=== PATIENT | male | born 1995 | race Caucasian/White ===

== ENCOUNTER 2024-04-04 03:09 | Emergency (ER) | payer OTHER, SELFPAY ==
[2024-04-04 03:15] VITALS: BP 147/93; PULSE 84; RESP 18; TEMP 36.5; O2SAT 94; BMI 33.4
--- NOTE | 2024-04-04 03:18 | XRR_ITS ---
PROCEDURE INFORMATION: Exam: XR Right Knee Exam date and time: 04/04/2024 3:27 AM Age: 29 years old Clinical indication: Swelling, leg or foot; Additional info: Pain swelling no trauma TECHNIQUE: Imaging protocol: Radiologic exam of the right knee. Views: 3 views. COMPARISON: No relevant prior studies available. FINDINGS: Bones/joints: Perhaps minimal articular effusion. Soft tissues: Thickening of the prepatellar anterior soft tissues. XR/XR knee RT 3V* [id number] IMPRESSION: 1. Thickening of the anterior pre-patellar soft tissues, nonspecific, can be seen in infection, trauma, bursitis. Correlate clinically. 2. Miniscule articular effusion.
[2024-04-04 03:20] VITALS: BP 147/93; PULSE 82; RESP 16; O2SAT 96
--- NOTE | 2024-04-04 03:21 | ED_ITS ---
HPI - Extremity Problem 2 General: Chief complaint: Extremity Problem,Nontraumatic Stated complaint: right knee arthoritis infection per doc Time Seen by Provider: 04/04/24 03:12 History of Present Illness: Patient presents to the ER with complaints of right knee pain and swelling. This began about a week ago. Patient does not remember any known trauma however he is up on his knees a lot for work. There is obvious swelling no erythema or warmth patient was seen by the [place] doctor and given some steroids of unknown kind patient said it has not helped and only became worse. Patient said that the doctor did some testing and said there was not uric acid ruled out gout otherwise he is not for sure what he tested for. Patient is never had this knee full to flareup like this, patient denies any fever chills nausea vomiting. Patient is able to stand and walk on his knee but it hurts. Patient has decent flexion and extension of his knee. Review of Systems 2 General: Reports: 10 or more systems reviewed and unremarkable except in HPI and below Physical Exam 2 Const: COMMON NORMALS: no acute distress, average body habitus, patient oriented x3, no limitations, healthy appearing, alert and well nourished HENMT: COMMON NORMALS: normocephalic, atraumatic, hearing grossly normal bilaterally, external ears normal, Normal external nose present and moist oral mucous membranes HEAD & SCALP: normocephalic and atraumatic NOSE: Normal external nose present EXTERNAL EAR: Yes external ears normal Neck/C-Spine: COMMON NORMALS: no JVD Resp: COMMON NORMALS: normal respiratory effort, No retractions, No use of accessory muscles and clear to auscultation bilaterally AUSCULTATION: clear to auscultation bilaterally Cardio: COMMON NORMALS: no JVD, regular rate, regular rhythm, S1 normal heart sound present, S2 normal heart sound present, No gallops present (Cardio), No clicks present (Cardio), No murmurs present (Cardio) and No rub (Cardio) R ATE: regular rate RHYTHM: regular rhythm HEART SOUNDS: S1 normal heart sound present and S2 normal heart sound present GI: COMMON NORMALS: Normal to inspection, nondistended, normoactive bowel sounds present, Soft to palpation, non-tender, No hepatosplenomegaly present and no masses PALPATION: Yes Soft to palpation and Yes No hepatosplenomegaly present Extremity: NARRATIVE EXTREMITY EXAM: Right knee swollen over prepatellar region and infrapatellar region. There is no tenderness to palpation over medial lateral collateral ligaments or posterior fossa. Tenderness to palpation over anterior patellar region is the most painful followed by the infrapatellar joint space region. There is no erythema or additional warmth to the knee No open sores or discharge noted. Neuro: COMMON NORMALS: patient oriented x3 SENSORIUM/ORIENTATION: Yes alert Course 2 Vital Signs: Vital signs: Vital Signs Temperature 97.7 F 04/04/24 03:15 Pulse Rate 82 04/04/24 03:20 Respiratory Rate 16 04/04/24 03:20 Blood Pressure 147/93 04/04/24 03:20 Pulse Oximetry 96 04/04/24 03:20 Oxygen Delivery Me thod Room Air 04/04/24 03:20 MDM - Extremity (Nontraumatic) Medical Decision Making X-ray preliminary read myself is negative for bony issues, lab work revealed a negative CBC negative CMP, uric acid was elevated at 7.4 CRP was mildly elevated at 5.9 procalcitonin was negative. These results was discussed with the patient as it may very well be gout with a positive uric acid however it is not red and irritated and he just finished a course of steroids, patient does not want to be put on another course of steroids or get a steroid shot he just wants pain medicine. We will prescribe him some meloxicam and have him follow-up with his primary care physician in the next 7 days for further evaluation and treatment. Medical Records I reviewed the patient's medical records. Lab Data I reviewed the patient's lab results. 04/04/24 03:48 04/04/24 03:48 Laboratory Results WBC 7.02 10^3/uL (3.29-11.43) 04/04/24 03:48 RBC 4.74 10^6/uL (3.85-5.65) 04/04/24 03:48 Hgb 15.00 g/dL (11.27-16.99) 04/04/24 03:48 Hct 44.3 % (37-53) 04/04/24 03:48 MCV 93.5 fl (82-101) 04/04/24 03:48 MCH 31.6 pg (27-33) 04/04/24 03:48 MCHC 33.9 g/dL (30-55) 04/04/24 03:48 RDW 11.9 % (12.1-15.1) L 04/04/24 03:48 Plt Count 238 10^3/cmm (157-399) 04/04/24 03:48 MPV 9.6 fL (7.4-10.4) 04/04/24 03:48 Neut % (Auto) 52.5 % 04/04/24 03:48 Lymph % (Auto) 36.5 % 04/04/24 03:48 Woodruff % (Auto) 8.4 % 04/04/24 03:48 Eos % (Auto) 2.1 % 04/04/24 03:48 Baso % (Auto) 0.4 % 04/04/24 03:48 Neut # (Auto) 3.68 10^3/uL (1.8-7.7) 04/04/24 03:48 Lymph # (Auto) 2.6 10^3/uL (0.8-4.8) 04/04/24 03:48 Woodruff # (Auto) 0.6 10^3/uL (0.2-0.9) 04/04/24 03:48 Eos # (Auto) 0.2 10^3/uL (0.0-0.8) 04/04/24 03:48 Baso # (Auto) 0.0 10^3/uL (0.0-0.1) 04/04/24 03:48 Nucleated RBC % (auto) 0 % 04/04/24 03:48 Nucleated RBCs # 0.0 /100WBC 04/04/24 03:48 ESR 10 mm/hr (0-10) 04/04/24 03:48 Sodium 140 mmol/L (136-145) 04/04/24 03:48 Potassium 4.0 mmol/L (3.5-5.1) 04/04/24 03:48 Chloride 107 mmol/L (98-107) 04/04/24 03:48 Carbon Dioxide 20 mmol/L (22-29) L 04/04/24 03:48 Anion Gap 17.0 (5-19) 04/04/24 03:48 BUN 17 mg/dL (6-20) 04/04/24 03:48 Creatinine 1.0 mg/dL (0.7-1.2) 04/04/24 03:48 GFR Calculation 89.0 mL/min (90-130) L 04/04/24 03:48 Glucose 112 mg/dL (65-115) 04/04/24 03:48 Calculated Osmolality 292 mOsm/kg (285-295) 04/04/24 03:48 Uric Acid 7.4 mg/dL (3.4-7.0) H 04/04/24 03:48 Calcium 8.9 mg/dL (8.5-10.5) 04/04/24 03:48 Total Bilirubin 0.3 mg/dL (0.15-1.2) 04/04/24 03:48 AST 22 U/L (0-40) 04/04/24 03:48 ALT 28 U/L (0-41) 04/04/24 03:48 Alkaline Phosphatase 93 U/L (40-130) 04/04/24 03:48 C-Reactive Protein 5.9 mg/L (0.0-4.9) H 04/04/24 03:48 Total Protein 7.1 g/dL (6.6-8.7) 04/04/24 03:48 Albumin 4.1 g/dL (3.5-5.2) 04/04/24 03:48 Globulin 3.0 g/dL (1.3-4.6) 04/04/24 03:48 Procalcitonin 0.03 ng/mL (0-0.5) 04/04/24 03:48 All radiology interpretation(s) finalized by discharge Discharge Plan Discharge Patient Disposition: Home Clinical Impression: Pain and swelling of right knee, Elevated blood uric acid level Condition: Stable Prescriptions: New meloxicam 7.5 mg tablet 7.5 mg PO .Twice daily Qty: 14 0RF Discharge Orders: Discharge ED (Routine); Ordered 04/04/24 Ordered By: Moose Granger Patient Instructions: Knee Pain (ED), Swollen Knee Joint (ED) Activity Restrictions/Additional Instructions: Your knee x-rays preliminary negative as read by myself, if the radiologist sees anything when he reads it later today we will be giving you a call. Your blood work was essentially unremarkable except for mild elevation your uric acid. Will be prescribed anti-inflammatory pain medicine that should help with this. Please follow-up with your primary care physician within the next 7 days for further evaluation and treatment. If this continues to be painful he may need to be placed on a uric acid lowering agent or see a orthopedist. Coding Level of Care Code ED [employer] for [facility]
[2024-04-04 03:51] LABS: Basophils % 0.4 %; Eosinophils # 0.2 10^3/uL (0.0-0.8); Eosinophils % 2.1 %; Hematocrit 44.3 % (37-53); Lymphocytes # 2.6 10^3/uL (0.8-4.8); Lymphocytes % 36.5 %; Mean Corpuscular HGB Conc 33.9 g/dL (30-55); Mean Corpuscular Hemoglobin 31.6 pg (27-33); Mean Corpuscular Volume 93.5 fl (82-101); Mean Platelet Volume 9.6 fL (7.4-10.4); Monocytes # 0.6 10^3/uL (0.2-0.9); Monocytes % 8.4 %; Neutrophils # 3.68 10^3/uL (1.8-7.7); Neutrophils % 52.5 %; Nucleated Red Blood Cells % 0 %; Platelet Count 238 10^3/cmm (157-399); Red Blood Count 4.74 10^6/uL (3.85-5.65); Red Cell Distribution Width 11.9 % (12.1-15.1); White Blood Count 7.02 10^3/uL (3.29-11.43)
[2024-04-04 04:08] LABS: Erythrocyte Sedimentation Rate 10 mm/hr (0-10)
[2024-04-04 04:10] LABS: Alanine Aminotransferase 28 U/L (0-41); Albumin Level 4.1 g/dL (3.5-5.2); Alkaline Phosphatase 93 U/L (40-130); Aspartate Amino Transferase 22 U/L (0-40); Blood Urea Nitrogen 17 mg/dL (6-20); C Reactive Protein 5.9 mg/L (0.0-4.9); Calcium 8.9 mg/dL (8.5-10.5); Carbon Dioxide 20 mmol/L (22-29); Chloride 107 mmol/L (98-107); Creatinine Clr Calc Pharmacy 184.2089; Glucose 112 mg/dL (65-115); Osmolality Calculated 292 mOsm/kg (285-295); Sodium 140 mmol/L (136-145); Total Bilirubin 0.3 mg/dL (0.15-1.2); Total Protein 7.1 g/dL (6.6-8.7); Uric Acid 7.4 mg/dL (3.4-7.0)
[2024-04-04 04:17] LABS: Procalcitonin 0.03 ng/mL (0-0.5)
[2024-04-04 05:06] VITALS: BP 147/93; PULSE 82; RESP 16; TEMP 36.5; O2SAT 96
== END 2024-04-04 05:07 | disposition home or self-care (01) ==
PROVIDERS: Emergency Provider Emergency Medicine
DX: M25.561 Pain in right knee (principal); M79.89 Other specified soft tissue disorders; E79.0 Hyperuricemia without signs of inflammatory arthritis and tophaceous disease
CPT/HCPCS: 36415; 73562; 80053; 84145; 84550; 85025; 85651; 86140; 99284